=== PATIENT | female | born 1955 | race Caucasian/White ===

== ENCOUNTER 2019-04-14 11:15 | Day surgery (SDC) | payer MEDICARE ==
[~2019-04-14 11:15] MED LIST: CHONDR SU A NA/HYALUR INTRAOC KIT (SURGICARE) ONE; DORZOLAMIDE HCL 2%/TIMOLOL MALEAT 0.5% OPH SOLN 10 ML OS PRN; EPINEPHRINE INJ/PF 1 MG/1 ML AMPULE ONE; KETOROLAC TROMETHAMINE 0.45% 4 DROP/0.4 ML DROPERETTE OS PRN; LIDOCAINE 1% INJ-PF (10 MG/ML) 30 ML SDV ONE; TETRACAINE HCL 0.5% OPH SOLN 0.6 ML DROPERETTE OS PRN; TOBRAMYCIN SULFATE/DEXAMETH OPH OINTMENT 3.5 GM ONE
[2019-04-14] MEDS: BESIFLOXACIN HCL 0.6% OPH SUSP 5 ML BOTTLE OS PRN ×3 (11:45→12:30)
[2019-04-14] MEDS: TETRACAINE HCL 0.5% OPH SOLN 4 ML OS PRN ×3 (11:45→12:12)
[2019-04-14] MEDS: CYCLOPENTOLATE 0.2%/PHENYLEPHRINE 1% OPH SOLN 2 ML OS PRN ×3 (11:45→12:05)
[2019-04-14] MEDS: TROPICAMIDE 1% OPH SOLN 15 ML OS PRN ×3 (11:45→12:05)
[2019-04-14] MEDS ORDERED: FENTANYL CITRATE INJ/PF 100 MCG/2 ML AMPUL ONE (12:04)
[2019-04-14] MEDS ORDERED: MIDAZOLAM 2 MG/2 ML INJ ONE (12:04)
== END 2019-04-14 13:04 | disposition home or self-care (01) ==
LOC: SC 11:15 → EDSEX 12:15 → SC 13:04
PROVIDERS: ATTEND Ophthalmology
DX: H25.12 Age-related nuclear cataract, left eye (principal); I10 Essential (primary) hypertension; F17.210 Nicotine dependence, cigarettes, uncomplicated; Z79.899 Other long term (current) drug therapy
CPT/HCPCS: 66984; 00142; V2632; J2250; J3490 ×3; A9270 ×2; J0171; J3010; 142

== ENCOUNTER 2019-04-28 10:15 | Day surgery (SDC) | payer MEDICARE ==
[~2019-04-28 10:15] MED LIST changes: -DORZOLAMIDE HCL 2%/TIMOLOL MALEAT 0.5% OPH SOLN 10 ML OS PRN; +KETOROLAC TROMETHAMINE 0.45% 4 DROP/0.4 ML DROPERETTE OD PRN; -KETOROLAC TROMETHAMINE 0.45% 4 DROP/0.4 ML DROPERETTE OS PRN; -TETRACAINE HCL 0.5% OPH SOLN 0.6 ML DROPERETTE OS PRN; -TOBRAMYCIN SULFATE/DEXAMETH OPH OINTMENT 3.5 GM ONE
[2019-04-28] MEDS ORDERED: ONDANSETRON HCL INJ/PF 4 MG/2 ML SDV ONE (10:18)
[2019-04-28] MEDS ORDERED: MIDAZOLAM 2 MG/2 ML INJ ONE ×2 (10:19→11:44)
[2019-04-28] MEDS ORDERED: FENTANYL CITRATE INJ/PF 100 MCG/2 ML AMPUL ONE (10:19)
[2019-04-28] MEDS: CYCLOPENTOLATE 0.2%/PHENYLEPHRINE 1% OPH SOLN 2 ML OD PRN ×3 (10:36→10:56)
[2019-04-28] MEDS: TROPICAMIDE 1% OPH SOLN 15 ML OD PRN ×3 (10:36→10:56)
[2019-04-28] MEDS: BESIFLOXACIN HCL 0.6% OPH SUSP 5 ML BOTTLE OD PRN ×4 (10:36→11:38)
[2019-04-28] MEDS: TETRACAINE HCL 0.5% OPH SOLN 4 ML OD PRN ×3 (10:37→11:16)
[2019-04-28] MEDS: DORZOLAMIDE HCL 2%/TIMOLOL MALEAT 0.5% OPH SOLN 10 ML OD PRN ×2 (11:38)
[2019-04-28] MEDS: TOBRAMYCIN SULFATE/DEXAMETH OPH OINTMENT 3.5 GM ONE ×2 (11:38)
== END 2019-04-28 12:13 | disposition home or self-care (01) ==
LOC: EDSEX → SC 10:15
PROVIDERS: ATTEND Ophthalmology
DX: H25.11 Age-related nuclear cataract, right eye (principal); Z98.42 Cataract extraction status, left eye; I10 Essential (primary) hypertension; F17.210 Nicotine dependence, cigarettes, uncomplicated
CPT/HCPCS: 00142; 66984; V2632; J2250; J3490 ×3; A9270 ×2; J0171; J3010; J2405; 142